=== PATIENT | female | born 1950 | race Two or more races ===

== ENCOUNTER 2024-04-24 22:10 | Emergency (ER) | payer MEDICARE, SELFPAY ==
--- NOTE | 2024-04-24 22:11 | PD.EDAMS ---
Altered Mental Status RME/HPI General Chief Complaint: Altered Mental Status Stated Complaint: AMS Time Seen by Provider: 04/24/24 22:29 Arrival date/time: 04/24/24 22:10 RME / HPI RME / HPI narrative: Dr. [facility] Main ED Evaluation: 73yo female with a history of schizophrenia (does not take her medications) MACK from home presents to the ED for a chief complaint of altered mental status. Patient was seen by me immediately upon arrival. Per EMS, patient soiled herself (urine and bowel) today. EMS endorses the patient normally has visual hallucinations, but became less responsive today, so family called 911. Patient's son reports the patient has had a decreased appetite and abdominal pain for the last one month, noting the patient has appeared more yellow for the last 3 weeks. No further history reported at this time. Full ROS is unobtainable due to the patient's AMS. Related Data Allergies Allergy/AdvReac Type Severity Reaction Status Date / Time Penicillins Allergy Rash Verified 04/24/24 22:55 Review of Systems Review of Systems ROS Unobtainable: unobtainable due to mental status ED Exam General General appearance: Present other (has muscle wasting, moves BUE to deep palpation, is very jaundiced, altered, has poor dentition with some blood around her teeth; does not open her eyes) Head Head exam: Present atraumatic Eye Eye exam: Present normal appearance, PERRL and EOMI ENT ENT exam: Present normal oropharynx and mucous membranes dry Neck Neck exam: Present normal inspection, full ROM and trachea midline Chest Chest inspection: Present normal inspection and symmetric chest wall rise Respiratory Respiratory exam: Present other (decreased breath sounds; has poor respirations) Cardiovascular Cardiovascular exam: Present regular rate, normal rhythm and normal heart sounds Abdominal Exam Abdominal exam: Present soft, normal bowel sounds and other (scaphoid) Extremities Exam Extremities exam: Absent pedal edema Back Exam Back exam: Present normal inspection and full ROM Neurological Exam Neurological exam: Present alert, oriented X3 and CN II-XII intact Psychiatric Psychiatric exam: Present normal affect and normal mood Skin Skin exam: Present warm, dry, intact and normal color Course Course Course Narrative: 2225: Sepsis alert initiated. Orders made at this time are congruent with ED Adult Sepsis Order List. Re-evaluation is to be completed. CXR is ordered for determining the etiology of AMS (not completed). 2255: NS IVF started. 0026: Sepsis reassessment performed consisting of lab review, vitals, physical exam including auscultation of heart, lungs, and visual evaluation of capillary refills, mucosal membranes and extremities. 0115: Patient . Quality Measures Possible source: GI tract/intra-abdominal Blood cultures ordered: yes Antibiotic ordered: Yes Pertinent labs: 04/24/24 22:45 Lactic Acid 20.0 H* mMol/L (0.4-2.0) Procalcitonin 2.57 H ng/ml (0.0-0.49) sepsis Orders Category Date Time Status EKG (ED ONLY) *Do not use* NOW Care 04/24/24 22:20 Completed Fingerstick [Bedside Blood Glucose] NOW Care 04/24/24 22:37 Completed Lima [Urinary Catheter] QS Care 04/24/24 22:23 Completed Insert IV NOW Care 04/24/24 22:23 Completed EKG (ED Only) Stat Exams 04/24/24 22:20 Ordered B-Type Natriuretic Peptide Stat Lab 04/24/24 22:45 Completed Blood Culture (Lab) Stat Lab 04/24/24 22:21 Ordered CBC Stat Lab 04/24/24 22:32 Completed Comprehensive Metabolic Panel Stat Lab 04/24/24 22:45 Completed Lactate (Lactic Acid) Stat Lab 04/24/24 22:45 Completed Lipase Stat Lab 04/24/24 22:45 Completed Procalcitonin Stat Lab 04/24/24 22:45 Completed Troponin I Stat Lab 04/24/24 22:45 Completed Type and Screen Stat Lab 04/24/24 22:45 Completed Etomidate Inj [Amidate Inj] Med 04/24/24 23:20 Discontinued 20 mg IV X1 ONE Norepinephrine/NS 16mg/250ml [Levophed in NS 16mg/250ml Med 04/25/24 00:18 Discontinued ] 16 mg in 250 ml IV 0.05 mcg/kg/min Sodium Chloride 0.9% 1000 ml [Ns] 1,000 ml Med 04/24/24 22:54 Discontinued IV 999 mls/hr Sodium Chloride 0.9% 1000 ml [Ns] 1,000 ml Med 04/25/24 00:19 Discontinued IV 999 mls/hr Sodium Chloride 0.9% 250 ml [Ns] 234 ml Med 04/24/24 23:09 Discontinued EPINEPHrine Inj [Adrenalin Inj] 16 mg IV 0.05 mcg/kg/min Sodium Chloride Rt Fatoumata 10% [NS Rt Fatoumata 10%] Med 04/24/24 23:24 Discontinued 5 ml INH X1 ONE Succinylcholine Inj [Anectine Inj] Med 04/24/24 23:20 Discontinued 100 mg IV X1 ONE Mechanical [Volume Ventilator] Stat RT 04/24/24 Active Sputum Induction PRN RT 04/24/24 23:30 Ordered Vital Signs Vital signs: Vital Signs Temperature 95.2 F L 04/24/24 22:15 Respiratory Rate 19 04/24/24 22:15 Blood Pressure 93/42 L 04/24/24 22:15 Oxygen Delivery Method Oxy Mask 04/24/24 22:15 Oxygen Flow Rate 15 04/24/24 22:15 Altered Mental Status MDM Narrative MDM Narrative:: History of schizophrenia and normally sees visual hallucinations and does not take her psychiatric meds. Past medical history unknown diabetes or hypertension Past surgical history for cysts in ovaries. Over 20 years ago. Today- SOILED her urine and stool. She started not responding as much and the family called ambulance. Son reports that she has had 1 month history of abdominal pain and decreased eating. 3-week history of jaundice Ambulance reports that she is yellow . 1050: Patient with 2 L IV fluids going. Heart rate is 72. I had a long discussion with the son and at this point he would like her to be a full code. I expressed to him that she likely may not survive this event He states he does not want to make a decision about her CODE STATUS other than being full code into his father and potentially the patient's sister gets here. 1055: ICU TEAM AT BEDSIDE, Central line completed WITH RESIDENT. 2330: SBP 88 systolic, resident completing arterial line. Patient continues to have blood pressure that is almost nonpalpable despite pressors and cannot give sedation for intubation without recordable blood pressure. However at this time I feel the patient has a very poor outcome and will not survive this event. Family at this time agrees to no intubation. 0045: Discussions with family re: comfort care. TOD-patient would like a pulse, no respirations, and asystole on monitor. Time of at 0214 Patient data External records reviewed:: [facility] previous records (Per chart review, patient has no previous ED visits or admissions to this facility.) Clinical information provided by:: EMS Social determinants that could affect healthcare access:: none Patient has the following chronic illnesses:: schizophrenia How is presenting disease/condition affected by chronic disease/condition?: uneffected by Evaluation data The following diagnostics were reviewed and interpreted by me:: lab results, radiology exam(s) and EKG tracing(s) Lab and/or radiology exams considered but not ordered:: none Interpretation Summary: WBC count is elevated at 24.9, HnH is low at 8.7/26.1, Lactic Acid is elevated at 20.0, BNP is normal, Sodium is low at 124, Chloride is low at 82, Carbon Dioxide is low at 10.6, Creatinine is elevated at 6.1, BUN is elevated at 122, eGFR is low at 7, LFTs are elevated, Total Bilirubin is elevated at 35.8, Total Protein is low at 4.9, Lipase is elevated at 101, Procalcitonin is elevated at 2.57, troponin is normal, according to my interpretation. EKG done at 2227, NSR, rate of 79, minimal ST depressions in V5 and V6, no ST elevations, low voltage, QTc: 432, according to my interpretation. Medications / Prescriptions Medications or Prescriptions considered but not ordered:: none Medication administrations:: Medication Administration History Discontinued Medications Etomidate (Etomidate Inj 2 Mg/Ml Vial 10 Ml) 20 mg 0.3 mg/kg (20 mg) IV X1 ONE Stop: 04/24/24 23:21 Last Admin: 04/25/24 00:53 Dose: Not Given Documented By: KG Non-Admin Reason: Change of Condition Sodium Chloride (Ns) 1,000 mls @ 999 mls/hr IV .Q1H1M ONE Stop: 04/24/24 23:54 Last Infusion: 04/24/24 23:56 Dose: Infused Documented By: Admin: 04/24/24 22:55 Dose: 999 mls/hr Documented By: KG Epinephrine HCl 16 mg/ Sodium (Chloride) 250 mls @ 3.083 mls/hr IV .Q24H PRN; Protocol PRN Reason: Per Protocol Stop: 05/24/24 23:08 Last Titration: 04/25/24 01:07 Dose: 0 mcg/kg/min, 0 mls/hr Documented By: Titration: 04/25/24 01:05 Dose: 0.19 mcg/kg/min, 11.715 mls/hr Documented By: Titration: 04/25/24 01:00 Dose: 0.21 mcg/kg/min, 12.949 mls/hr Documented By: Titration: 04/25/24 00:55 Dose: 0.23 mcg/kg/min, 14.182 mls/hr Documented By: Titration: 04/25/24 00:50 Dose: 0.25 mcg/kg/min, 15.415 mls/hr Documented By: Titration: 04/25/24 00:45 Dose: 0.27 mcg/kg/min, 16.648 mls/hr Documented By: Titration: 04/25/24 00:40 Dose: 0.29 mcg/kg/min, 17.882 mls/hr Documented By: Titration: 04/25/24 00:35 Dose: 0.31 mcg/kg/min, 19.115 mls/hr Documented By: Titration: 04/25/24 00:30 Dose: 0.33 mcg/kg/min, 20.348 mls/hr Documented By: Titration: 04/25/24 00:25 Dose: 0.31 mcg/kg/min, 19.115 mls/hr Documented By: Titration: 04/25/24 00:20 Dose: 0.29 mcg/kg/min, 17.882 mls/hr Documented By: Titration: 04/25/24 00:15 Dose: 0.27 mcg/kg/min, 16.648 mls/hr Documented By: Titration: 04/25/24 00:10 Dose: 0.25 mcg/kg/min, 15.415 mls/hr Documented By: Titration: 04/25/24 00:05 Dose: 0.23 mcg/kg/min, 14.182 mls/hr Documented By: Titration: 04/25/24 00:00 Dose: 0.21 mcg/kg/min, 12.949 mls/hr Documented By: Titration: 04/24/24 23:55 Dose: 0.19 mcg/kg/min, 11.715 mls/hr Documented By: Titration: 04/24/24 23:50 Dose: 0.17 mcg/kg/min, 10.482 mls/hr Documented By: Titration: 04/24/24 23:45 Dose: 0.15 mcg/kg/min, 9.249 mls/hr Documented By: Titration: 04/24/24 23:40 Dose: 0.13 mcg/kg/min, 8.016 mls/hr Documented By: Titration: 04/24/24 23:35 Dose: 0.11 mcg/kg/min, 6.783 mls/hr Documented By: Titration: 04/24/24 23:30 Dose: 0.09 mcg/kg/min, 5.549 mls/hr Documented By: Titration: 04/24/24 23:25 Dose: 0.09 mcg/kg/min, 5.549 mls/hr Documented By: Titration: 04/24/24 23:20 Dose: 0.07 mcg/kg/min, 4.316 mls/hr Documented By: Admin: 04/24/24 23:15 Dose: 0.05 mcg/kg/min, 3.083 mls/hr Documented By: KG Norepinephrine Bitartrate (Levophed In Ns 16mg/250ml) 16 mg in 250 mls @ 3.083 mls/hr IV .Q24H PRN; Protocol PRN Reason: PER PROTOCOL Stop: 05/25/24 00:17 Last Titration: 04/25/24 00:55 Dose: 0 mcg/kg/min, 0 mls/hr Documented By: Titration: 04/25/24 00:50 Dose: 0.01 mcg/kg/min, 0.617 mls/hr Documented By: Titration: 04/25/24 00:45 Dose: 0.03 mcg/kg/min, 1.85 mls/hr Documented By: Titration: 04/25/24 00:40 Dose: 0.05 mcg/kg/min, 3.083 mls/hr Documented By: Titration: 04/25/24 00:35 Dose: 0.07 mcg/kg/min, 4.316 mls/hr Documented By: Titration: 04/25/24 00:30 Dose: 0.09 mcg/kg/min, 5.549 mls/hr Documented By: Titration: 04/25/24 00:25 Dose: 0.07 mcg/kg/min, 4.316 mls/hr Documented By: Admin: 04/25/24 00:20 Dose: 0.05 mcg/kg/min, 3.083 mls/hr Documented By: KG Sodium Chloride (Ns) 1,000 mls @ 999 mls/hr IV .Q1H1M ONE Stop: 04/25/24 01:19 Last Infusion: 04/25/24 01:15 Dose: Infused Documented By: Admin: 04/25/24 00:28 Dose: 999 mls/hr Documented By: KG Sodium Chloride (Sodium Chloride Rt 10% 15 Ml Nebu) 5 ml INH X1 ONE Stop: 04/24/24 23:25 Succinylcholine Chloride (Succinylcholine Inj 20 Mg/Ml Vial 10 Ml) 100 mg IV X1 ONE Stop: 04/24/24 23:21 Last Admin: 04/25/24 00:54 Dose: Not Given Documented By: KG Non-Admin Reason: Change of Condition see above Consultations Consultation(s) initiated? (list below): No Diagnosis Differential diagnosis altered mental status: other (abdominal mass, CBD stone, cholecystitis, pancreatic CA, other abdominal or lung CA, sepsis, electrolyte abnormality, GI bleed) Most likely diagnosis given after review of the tests above:: Patient . Admission Indicated Admission indicated?: not indicated Admission Request Was there a request for admission?: No Disposition Plan Disposition Plan: other (specify) (Patient .) Critical Care Time Critical Care Time Critical Care Time: Yes Total Critical Care Time (min.): 60 Attestation: The high probability of sudden, clinically significant deterioration in the patient?s condition required the highest level of my preparedness to intervene urgently. The services I provided to this patient were to treat and/or prevent clinically significant deterioration. Services included the following: chart data review, reviewing nursing notes and/or old charts, documentation time, biztalk consultant collaboration regarding findings and treatment options, medication orders and management, direct patient care, vital sign assessments and ordering, interpreting and reviewing diagnostic studies and lab tests. Aggregate critical care time includes only time during which I was engaged in work directly related to the patient?s care, as described above, whether at bedside or elsewhere in the Emergency Department. It did not include time spent performing other reported procedures or the services of residents, students, nurses or physician assistants. Discharge Plan Plan Patient Disposition: Patient condition on transfer: Benefits outweigh risks Prescriptions/Referrals Referrals: No Primary/Family,Physician [Primary Care Provider] - In 1 week Problem List Clinical Impression: Sepsis, Altered mental status, Acute respiratory distress, Elevated liver function tests, Acute hyponatremia Patient/Caregiver Discharge Instructions Print Language: Georgian
[2024-04-24 22:12] VITALS: PULSE 133
[2024-04-24 22:15] VITALS: BP 93/42; RESP 19; TEMP 35.1; BMI 25.7
--- NOTE | 2024-04-24 22:28 | PC.NURSE ---
Reji chase applied.
[2024-04-24 22:29] VITALS: BP 97/69; PULSE 76; RESP 21
--- NOTE | 2024-04-24 22:40 | PC.NURSE ---
Dr. Díaz speaking to family at this time.
--- NOTE | 2024-04-24 22:45 | PC.NURSE ---
Lab at the bedside attempting lab draw.
[2024-04-24 22:55] LABS: Basophils # (Auto) 0.1 Thou/mm3 (0.0-0.2); Basophils % (Auto) 0 % (0-2.5); Eosinophils % (Auto) 0 % (0-10); Hematocrit 26.1 % (36.0-46.0); Immature Granulocytes % (Auto) 13 % (0-0); Immature Granulocytes Auto 3.33 Thou/mm3 (0.00-0.00); Lymphocytes # (Auto) 2.4 Thou/mm3 (1.0-4.8); Lymphocytes % (Auto) 10 % (10-50); Mean Corpuscular HGB Conc 33.3 g/dl (31.0-37.0); Mean Corpuscular Hemoglobin 31.9 pg (25.0-35.0); Mean Corpuscular Volume 96 fL (80-100); Monocytes # (Auto) 2.2 Thou/mm3 (0.0-0.8); Monocytes % (Auto) 9 % (0-12); Neutrophils # (Auto) 16.8 Thou/mm3 (1.8-7.7); Neutrophils % (Auto) 68 % (37-80); Nucleated Red Blood Cell % 15 /100 WBC (0); Platelet Count 349 Thou/mm3 (140-440); Red Blood Count 2.73 Miln/mm3 (4.00-5.20); White Blood Count 24.9 Thou/mm3 (3.6-11.0)
[2024-04-24] MEDS: SODIUM CHLORIDE 0.9% 1000 ML 1,000 ML 999 ML IV (22:55)
[2024-04-24 22:59] LABS: Hemoglobin 8.7 g/dL (12.0-16.0)
--- NOTE | 2024-04-24 22:59 | PC.NURSE ---
Unable tto get blood pressure readings. Dr. Díaz informed and at the bedside preparing for intubation.
--- NOTE | 2024-04-24 23:06 | PC.NURSE ---
Dr. Díaz at the bedside with resident and RT. Preparing for central line insertion and then intubation. Verbal order to start epi drip.
[2024-04-24 23:15] VITALS: BP 55/21; PULSE 66
[2024-04-24] MEDS: EPINEPHrine Inj 16 MG in SODIUM CHLORIDE 0.9% 250 ML 234 ML 3.083 MG IV (23:15)
[2024-04-24 23:24] LABS: B-Type Natriuretic Peptide 52 pg/mL (0-100)
[2024-04-24 23:28] LABS: Alanine Aminotransferase 656 U/L (10-49); Albumin, Serum 2.3 gm/dL (3.4-4.8); Albumin/Globulin Ratio 0.9 (1.2-2.2); Alkaline Phosphatase 1268 U/L (46-116); Anion Gap 31 (7-16); BUN/Creatinine Ratio 20 Ratio (12-20); Calcium 8.4 mg/dL (8.3-10.6); Calcium (Corrected) 9.8 mg/dL (8.5-10.1); Chloride 82 mMol/L (98-107); Creatinine (Component) 6.1 mg/dL (0.6-1.3); Estimated Creatinine Clearance 7.6 mL/min (>60); Globulin 2.6 gm/dL (2.3-3.5); Glucose 100 mg/dL (74-106); Lipase 101 U/L (12-53); Osmolality,Calculated 288 (275-295); Potassium 4.5 mMol/L (3.4-5.1); Procalcitonin 2.57 ng/ml (0.0-0.49); Sodium 124 mMol/L (136-145); Total Protein 4.9 gm/dL (5.7-8.2); Troponin I 0.045 ng/mL (0.0-0.045); eGFR 7 See Note
[2024-04-24 23:29] LABS: Blood Urea Nitrogen 122 mg/dL (9-23)
[2024-04-24 23:30] LABS: Carbon Dioxide 10.6 mMol/L (20.0-31.0)
--- NOTE | 2024-04-24 23:43 | PC.NURSE ---
Resident and ICU doctor at the bedside for art line insertion. Fluid and tubing set up for art line monitor.
[2024-04-24 23:48] LABS: Aspartate Amino Transferase 1354 U/L (0-34)
--- NOTE | 2024-04-25 00:04 | PC.NURSE ---
Family escorted to conference room to wait for procedures to be finished.
[2024-04-25 00:05] LABS: Bilirubin,Total 35.8 mg/dL (0.3-1.2)
[2024-04-25 00:20] VITALS: BP 0/0; PULSE 66
[2024-04-25] MEDS: Norepinephrine/NS 16mg/250ml 16 MG/250 ML BAG 3.083 MG IV (00:20)
[2024-04-25] MEDS: SODIUM CHLORIDE 0.9% 1000 ML 1,000 ML 999 ML IV (00:28)
--- NOTE | 2024-04-25 00:35 | PC.NURSE ---
Per Dr. Díaz and residents, pt's family has decided to make pt DNR/comfort care at this time. Will begin titrating drips down.
--- NOTE | 2024-04-25 00:39 | EVENTNT_ITS ---
Documentation for date of: 04/25/24 Event Note Event Note: Around 22:30 pm received a call from the ED for patient in state of shock and altered mental status to insert central line and intubated patient to start pressor support and mechanical ventilation. Patient was brought to the ED with family members due to altered mental status. Per family members she has been presenting progressive jaundice since approximately 3 weeks and the patient refused to come to the hospital or be seen by a physician. On arrival at the ED BP 93/42 MAP 59 temp 95.2 F. On physical exam patient had a generalized severe jaundice labs were remarkable for severe leukocytosis 24.9, hemoglobin at 8.7 an ion gap 31 creatinine 6.1 bicarb 10.6 lactic acid 20 T. bili 35.8 AST 1354 ALT 650 alk phos 1268. central line was inserted and patient was started on pressors otherwise after labs results and critical condition and poor overall prognosis due to multiorgan failure. we had goals of care discussion with patient family members son and and they understood the situation and decide to pursue comfort care. Patient discussed with my attending Dr Arjun Andrade MD PGY-3 Disclaimer: Despite multiple revisions, due to the dictation software being used, the document bellow may not be free of grammatical errors including phonetic/typographic errors. However, this does not deter from our commitment to providing health care in the patient's best interest in mind.
--- NOTE | 2024-04-25 00:53 | PC.NURSE ---
Family at the bedside at this time.
--- NOTE | 2024-04-25 01:05 | PC.NURSE ---
NOTIFIED PRIMARY RN CHELLY THAT PT'S HR IS STARTING TO DROP.
--- NOTE | 2024-04-25 01:15 | PC.NURSE ---
Dr. Díaz at the bedside, pronounced pt at 0115.
--- NOTE | 2024-04-25 01:15 | PC.NURSE ---
Monitor shows asystole, no palpable pulse felt and no heartbeat detected after auscultating x2 mins. Pt is not breathing on her own. Dr. Díaz called to the bedside.
--- NOTE | 2024-04-25 01:37 | PC.NURSE ---
Called [facility] at this time to report , spoke to Talya.
--- NOTE | 2024-04-25 01:46 | PC.NURSE ---
Received phone call from [facility] with [facility], he states that pt is not a candidate for tissue donation at this time and they will be closing the case.
[2024-04-25 01:50] LABS: Reflex Lactate? Y
[2024-04-25 12:43] LABS: Band Neutrophils (Manual) 7 % (0-6); Lymphocytes (Manual) 21 % (20-44); Metamyelocytes (Manual) 1 % (0-0); Monocytes (Manual) 5 % (2-9); Myelocytes (Manual) 1 % (0-0); Neutrophils (Manual) 63 % (50-70); Promyelocytes (Manual) 1 % (0-0)
== END 2024-04-25 02:48 | disposition expired ==
PROVIDERS: Emergency Provider Emergency Medicine
DX: A41.9 Sepsis, unspecified organism (principal); E87.1 Hypo-osmolality and hyponatremia; R06.03 Acute respiratory distress; R79.89 Other specified abnormal findings of blood chemistry
CPT/HCPCS: 51702; 36556; 36415; 80053; 81001; 82140; 83605; 83690; 83880; 84145; 84484; 85025; 86850; 86900; 86901; 87205; 93005; 96365; 96366; 99291; C1751; J0171; J3490; J7030; J7050